=== PATIENT | female | born 1970 | race Caucasian/White ===

== ENCOUNTER 2016-08-30 10:41 | Emergency (ER) | payer OTHER ==
[~2016-08-30] VITALS: Ht 167.6 cm; Wt 113.4 kg
[~2016-08-30 10:41] MED LIST: CLAR500T PO; CLARATIN; MUCINEX; PROAIR
[2016-08-30 10:58] VITALS: BP_SYST 129
[2016-08-30] MEDS ORDERED: DIPHENHYDRAMINE INJ 50 MG/ML VIAL IVP ONE (16:00)
[2016-08-30] MEDS ORDERED: METOCLOPRAMIDE HCL 10 MG/2 ML VIAL IVP ONE (16:00)
[2016-08-30] MEDS ORDERED: NACL 0.9% 1,000 ML IV ONE (16:00)
[2016-08-30] MEDS ORDERED: KETOROLAC TROMETHAMINE 30 MG VIAL IVP ONE (16:00)
[2016-08-30 16:30] LABS: BASOPHILS # (AUTO) 0.1 K/uL (0.0-0.2); BASOPHILS % (AUTO) 0.8 % (0.0-2.0); EOSINOPHILS # (AUTO) 0.2 K/uL (0.0-0.4); EOSINOPHILS % (AUTO) 2.4 % (0.0-4.0); HEMATOCRIT 37.9 % (36-48); HEMOGLOBIN 12.8 g/dL (12.0-16.0); LYMPHOCYTES # (AUTO) 2.6 K/uL (1.0-5.5); LYMPHOCYTES % (AUTO) 30.1 % (20.5-51.5); MEAN CORPUSCULAR HEMOGLOBIN 28 pg (27-31); MEAN CORPUSCULAR HGB CONC 34 % (32-36); MEAN CORPUSCULAR VOLUME 84 fL (79.0-98.0); MONOCYTES # (AUTO) 0.7 K/uL (0.0-1.0); MONOCYTES % (AUTO) 8.1 % (1.7-9.3); NEUTROPHILS # (AUTO) 5.1 K/uL (1.8-7.7); NEUTROPHILS % (AUTO) 58.6 % (40.0-70.0); PLATELET COUNT (AUTO) 319 K/uL (130-430); RED BLOOD CELL COUNT(AUTO) 4.49 MIL/uL (4.2-6.2); RED CELL DISTRIBUTION WIDTH 13.2 % (9.0-15.0); WHITE BLOOD COUNT (AUTO) 8.7 K/uL (4.8-10.8)
[2016-08-30 16:32] LABS: CALCIUM 8.9 mg/dL (8.4-11.0); CREATININE 0.81 mg/dL (0.55-1.30); POTASSIUM 3.8 mmol/L (3.5-5.1)
[2016-08-30 16:37] LABS: ALBUMIN 3.6 g/dL (3.4-4.8); TOTAL BILIRUBIN 0.2 mg/dL (0.0-1.0); TOTAL PROTEIN, SERUM 7.6 g/dL (6.4-8.3)
[2016-08-30] MEDS ORDERED: methylPREDNISolone SOD SUCC/PF 62.5 MG/ML VIAL IVP ONE (16:45)
[2016-08-30] MEDS ORDERED: methylPREDNISolone SOD SUCC 500 MG/VIAL (Solu-MEDROL) IV ONE (16:45)
[2016-08-30] MEDS ORDERED: methylPREDNISolone SOD SUCC/PF 62.5 MG/ML VIAL ONE (16:45)
[2016-08-30] MEDS ORDERED: HYDROmorphone 1 MG INJ. 1 MG/ML AMPUL IVP ONE (18:00)
[2016-08-30] MEDS ORDERED: ONDANSETRON HCL 4 MG/2 ML VIAL IVP ONE (18:00)
[2016-08-30 18:25] VITALS: BP_SYST 120
== END 2016-08-30 18:25 | disposition home or self-care (01) ==
LOC: SED 10:41
DX: G43.909 Migraine, unspecified, not intractable, without status migrainosus (principal); J45.909 Unspecified asthma, uncomplicated
CPT/HCPCS: 36415; 70450; 80053; 81025; 85025; 93005; 96361; 96374; 96375; 99285; J1170; J1200; J1885; J2405; J2765; J2930; J7030